=== PATIENT | female | born 1995 | race Caucasian/White ===

== ENCOUNTER 2017-04-16 12:11 | Emergency (ER) | payer OTHER ==
[2017-04-16 12:41] LABS: #Basophils 0.1 thou/uL (0.0-0.2); #Eosinphils 0.2 thou/uL (0.0-0.7); #Monocytes 0.7 thou/uL (0.11-0.59); #Neutrophils 7.1 thou/uL (1.40-6.50); %Basophils 0.7 % (0.0-1.0); %Eosinophils 2.3 % (0.0-10.0); %Lymphocytes 19.7 % (21.0-51.0); %Monocytes 6.8 % (0.0-10.0); %Neutrophils 70.5 % (42.0-75.0); Mean Corpuscular HGB CONC 32.9 g/dL (32.0-36.0); Mean Corpuscular Hemoglobin 29.9 pg (27.0-31.0); Mean Platelet Volume 7.5 fL (7.4-10.4); Platelet Count 293 thou/uL (130-400); RBC Distribution Width 11.9 % (11.5-14.5); Red Blood Cell (RBC) Count 4.66 mill/uL (4.20-5.40); White Blood Cell (WBC) Count 10.1 thou/uL (4.8-10.8)
[2017-04-16 12:46] LABS: Bilirubin Negative (Negative); Blood, Urine Negative (Negative); Clarity TURBID (Clear); Glucose, Urine (Dipstick) Negative (Negative); Leukocyte Negative (Negative); Nitrite Negative (Negative); Protein, Urine (Dipstick) Trace mg/dL (Neg-Trace); Specific Gravity, Urine 1.024 (1.002-1.036)
[2017-04-16 12:47] LABS: Pregnancy Test - Urine (BHCG) Negative (Negative); Pregu Control Background? CLEAR/WHITE (CLR/WHITE); Pregu Control Bar Appear? YES (CONTROL BAR); Specific Gravity 1.024 (1.002-1.036)
[2017-04-16 13:00] LABS: ALT (SGPT) 60 U/L (8-55); AST (SGOT) 31 U/L (5-34); Albumin 4.1 g/dL (3.5-5.0); Alkaline Phosphatase 91 U/L (40-150); Anion Gap 12 mmol/L (10-20); BUN (Urea Nitrogen) 10 mg/dL (7.0-18.7); Bilirubin, Total 0.5 mg/dL (0.2-1.2); Calc. Creatinine Clearance 0 mL/min (70-130); Calcium 9.2 mg/dL (7.8-10.44); Carbon Dioxide 26 mmol/L (22-29); Chloride 107 mmol/L (98-107); Estimated GFR-MDRD Greater than 90; Globulin 3.3 g/dL (2.4-3.5); Glucose 141 mg/dL (70-105); Potassium 3.3 mmol/L (3.5-5.1); Protein, Total 7.4 g/dL (6.0-8.3); Sodium 142 mmol/L (136-145)
--- NOTE | 2017-04-16 17:52 | ULT ---
GALLBLADDER ULTRASOUND: 04/16/17 INDICATION: Right upper quadrant pain. FINDINGS: No focal hepatic lesion or acute gallbladder pathology evident. Common duct is normal measuring 2 mm in diameter. There is no ascites. IMPRESSION: No acute abnormality of the right upper quadrant evident sonographically. POS: C
== END 2017-04-16 17:43 | disposition home or self-care (01) ==
LOC: ERS 12:11
DX: R10.11 Right upper quadrant pain (principal); R10.13 Epigastric pain; R73.9 Hyperglycemia, unspecified; F41.9 Anxiety disorder, unspecified; F17.210 Nicotine dependence, cigarettes, uncomplicated; G35 Multiple sclerosis
CPT/HCPCS: 36415; 76705; 80053; 81003; 81025; 85025; 99406

== ENCOUNTER 2019-01-01 16:54 | Inpatient (IN) | payer OTHER ==
[2019-01-01] MEDS ORDERED: Famotidine 20 MG TAB ONE (17:54)
[2019-01-01] MEDS ORDERED: Sucralfate 1 GM/10 ML UDCUP ONE (17:54)
[2019-01-01] MEDS ORDERED: Ondansetron ODT 4 MG TAB ONE (17:57)
[2019-01-01 18:00] LABS: #Basophils 0.1 thou/uL (0.0-0.2); #Eosinphils 0.3 thou/uL (0.0-0.7); #Lymphocytes 3.2 thou/uL (1.20-3.40); #Monocytes 0.9 thou/uL (0.11-0.59); #Neutrophils 12.1 thou/uL (1.40-6.50); %Basophils 0.6 % (0.0-1.0); %Eosinophils 1.7 % (0.0-10.0); %Lymphocytes 19.1 % (21.0-51.0); %Monocytes 5.5 % (0.0-10.0); %Neutrophils 73.2 % (42.0-75.0); Hemoglobin 15.9 g/dL (12.0-16.0); Mean Corpuscular HGB CONC 34.5 g/dL (32.0-36.0); Mean Corpuscular Hemoglobin 30.6 pg (27.0-31.0); Mean Corpuscular Volume 88.5 fL (78.0-98.0); Mean Platelet Volume 7.7 fL (7.4-10.4); Platelet Count 365 thou/uL (130-400); RBC Distribution Width 12.1 % (11.5-14.5); Red Blood Cell (RBC) Count 5.19 mill/uL (4.20-5.40); White Blood Cell (WBC) Count 16.6 thou/uL (4.8-10.8)
[2019-01-01 18:22] LABS: ALT (SGPT) 70 U/L (8-55); AST (SGOT) 47 U/L (5-34); Albumin 4.7 g/dL (3.5-5.0); Alkaline Phosphatase 119 U/L (40-150); Anion Gap 14 mmol/L (10-20); BHCG - Serum Negative (NEGATIVE); BUN (Urea Nitrogen) 11 mg/dL (7.0-18.7); Bilirubin, Total 0.6 mg/dL (0.2-1.2); Calc. Creatinine Clearance 0 mL/min (70-130); Calcium 10.4 mg/dL (7.8-10.44); Carbon Dioxide 28 mmol/L (22-29); Chloride 98 mmol/L (98-107); Estimated GFR-MDRD Greater than 90; Globulin 3.3 g/dL (2.4-3.5); Glucose 104 mg/dL (70-105); Lipase 277 U/L (8-78); Potassium 3.3 mmol/L (3.5-5.1); Pregs Control Background? CLEAR/WHITE (CLR/WHITE); Pregs Control Bar Appear? YES (CONTROL BAR); Sodium 137 mmol/L (136-145)
[2019-01-01] MEDS ORDERED: Ketorolac Tromethamine 30 MG/ML VIAL ONE (18:55)
--- NOTE | 2019-01-01 19:23 | ULT ---
RIGHT UPPER QUADRANT ULTRASOUND: History: Epigastric pain for four days. Technique: Multiplanar grayscale and color doppler images were obtained in a right upper quadrant abd ominal ultrasound. FINDINGS: The liver demonstrates increased echogenicity without focal lesions or intrahepatic ductal dilatation . The gallbladder is normal without stones, sludge, gallbladder wall thickening or pericholecystic fl uid. The common bile duct is normal measuring 4 mm. The visualized portions of the pancreas are unremarkable. The right kidney is normal in echogenicity without hydronephrosis or calculus and measures 8.6 cm in length. IMPRESSION: Fatty liver. POS: [facility]
[2019-01-01] MEDS ORDERED: Ondansetron PF 4 MG/2 ML Vial IVP PRN (20:33)
[2019-01-01] MEDS ORDERED: Ondansetron ODT 4 MG TAB SL PRN (20:33)
[2019-01-01 20:42] VITALS: BMI 37.0
[2019-01-01] MEDS: Sodium Chloride 0.9% 1,000 ML IV SCH (21:00)
--- NOTE | 2019-01-01 21:53 | HP ---
PRIMARY CARE DOCTOR: Raymundo Andino MD CODE STATUS: Full code. TIME OF EVALUATION: 7:30 p.m. CHIEF COMPLAINT: Abdominal pain. HISTORY OF PRESENT ILLNESS: This is a 23-year-old female patient with past medical history of hypertension, MS, melena, hyperthermia, alcohol abuse, came to the hospital after having epigastric pain that radiated to her back. The pain has been present for the past 4 days, started insidiously and has been gradually getting worse. It worsens with deep breath and food, associated with nausea. No bloody bowel movements. The patient drinks heavily almost everyday. REVIEW OF SYSTEMS: All systems reviewed were negative except for the findings mentioned above. PAST MEDICAL HISTORY: Positive for the findings mentioned in the HPI. PAST SURGICAL HISTORY: The patient has spinal surgery, thoracic and lumbar surgery. PSYCHIATRIC HISTORY: Anxiety with no previous psych admissions. SOCIAL HISTORY: Drinks socially. No drug use. Smokes 1 to 2 cigarettes per day. Lives at home alone. KNOWN ALLERGIES: Inhaled anesthesia, lidocaine. REPORTED MEDICATIONS: 1. Lisinopril. 2. Hydrochlorothiazide. PHYSICAL EXAMINATION: VITAL SIGNS: On presentation, blood pressure 149/88 with heart rate 99, respiratory rate was 18, temperature 98.3. Pain was 9/10. Oxygen saturation was 97% on room air. GENERAL APPEARANCE: The patient is alert, oriented, in no acute distress. HEENT: Eyes, normal conjunctiva, moist oral mucosa. Anicteric. No JVD. RESPIRATORY: Bilateral air entry. No rales. No wheezing. Symmetric expansion. CARDIOVASCULAR: Normal rate, regular rhythm. No murmurs. No edema. ABDOMEN: Soft. Normal bowel sounds. MUSCULOSKELETAL: Baseline range of motion and strength. SKIN: Warm, intact. No pallor. No rash. No redness. Capillary refill seems to be intact. NEUROLOGIC: No evidence of any new focal weakness. Cranial nerves seems to be intact. RADIOLOGY: Abdominal ultrasound is negative with normal bowel and bladder. LABORATORY DATA: Reviewed. The patient has white count 16.6, MCV 88.5, platelet count 365. Chemistry: Sodium 137, potassium 3.3, chloride 98, carbon dioxide 28, anion gap 15, BUN 11, creatinine 0.54, GFR greater than 90, glucose 104, calcium 10.4, total bilirubin 0.6, AST 47, ALT 70, alkaline phosphatase 119. Serum total protein 8.0, albumin 4.7, globulin 3.3, albumin globulin ratio 1.4, lipase 277. Serum test was negative. ASSESSMENT AND PLAN: The patient will be placed in the hospital with the following medical problems. 1. Abdominal pain of unclear etiology. There is mild elevation in lipase and the patient has a risk of alcohol abuse. We will give hydration, we will treat the pain. We will monitor and treat accordingly. 2. Hypokalemia. Potassium 3.3 and mildly decreased. We will replace electrolytes as needed. 3. Leukocytosis. White count is 16.6. No evidence of infection at this point. We will monitor and decide on any further antibiotic treatment depending on the patient's clinical course. 4. History of alcohol abuse. The patient denies any history of delirium when stopping to drink. We will continue to monitor and watch for delirium tremens. 5. Deep venous thrombosis prophylaxis. Job ID: [id number]
[2019-01-01] MEDS: Ketorolac Tromethamine 30 MG/ML VIAL IVP PRN (23:28)
[2019-01-02] MEDS: Sodium Chloride 0.9% 1,000 ML IV SCH ×4 (04:10→23:29)
[2019-01-02] MEDS ORDERED: Morphine 2 MG/ML SYRINGE SLOW IVP SCH (04:15)
[2019-01-02] MEDS: Ketorolac Tromethamine 30 MG/ML VIAL IVP PRN ×4 (05:37→23:31)
[2019-01-02] MEDS: Pantoprazole 40 MG VIAL IVP SCH (05:39)
[2019-01-02 05:47] LABS: #Eosinphils 0.3 thou/uL (0.0-0.7); #Lymphocytes 2.9 thou/uL (1.20-3.40); #Monocytes 0.7 thou/uL (0.11-0.59); #Neutrophils 5.9 thou/uL (1.40-6.50); %Basophils 0.3 % (0.0-1.0); %Eosinophils 2.8 % (0.0-10.0); %Lymphocytes 29.2 % (21.0-51.0); %Neutrophils 60.6 % (42.0-75.0); Hemoglobin 12.6 g/dL (12.0-16.0); Mean Corpuscular HGB CONC 34.6 g/dL (32.0-36.0); Mean Corpuscular Volume 89.6 fL (78.0-98.0); Mean Platelet Volume 7.6 fL (7.4-10.4); Platelet Count 227 thou/uL (130-400); Red Blood Cell (RBC) Count 4.05 mill/uL (4.20-5.40); White Blood Cell (WBC) Count 9.8 thou/uL (4.8-10.8)
[2019-01-02] MEDS ORDERED: Sodium Chloride 0.9% (PF) 10 ML VIAL FS PRN (06:00)
[2019-01-02 06:29] LABS: Anion Gap 9 mmol/L (10-20); BUN (Urea Nitrogen) 8 mg/dL (7.0-18.7); Calc. Creatinine Clearance 151 mL/min (70-130); Calcium 7.7 mg/dL (7.8-10.44); Carbon Dioxide 25 mmol/L (22-29); Chloride 107 mmol/L (98-107); Estimated GFR-MDRD Greater than 90; Glucose 101 mg/dL (70-105); Potassium 3.5 mmol/L (3.5-5.1); Sodium 137 mmol/L (136-145)
[2019-01-02] MEDS: Enoxaparin Sodium 40 MG/0.4 ML SYRINGE SC SCH (11:05)
[2019-01-02] MEDS: Lisinopril/Hydrochlorothiazide 10 mg/12.5 mg Tablet PO SCH (11:18)
[2019-01-02 11:25] LABS: Cardiac Risk 3.9 (Less than 4.5)
[2019-01-02 11:27] LABS: ALT (SGPT) 41 U/L (8-55); AST (SGOT) 28 U/L (5-34); Albumin 3.3 g/dL (3.5-5.0); Alkaline Phosphatase 78 U/L (40-150); Bilirubin, Direct 0.2 mg/dL (0.1-0.3); Bilirubin, Total 0.5 mg/dL (0.2-1.2); Protein, Total 5.6 g/dL (6.0-8.3)
--- NOTE | 2019-01-02 15:57 | PDOC.HOSPP ---
- Subjective Subjective: Doing a little better. Feels like her pain has slightly improved. She has been able to go a little longer without meds. Says she does not drink daily, but does drink several days per week and does drink heavily. - Objective Vital Signs & Weight: Vital Signs (12 hours) Temp Pulse Resp BP BP Pulse Ox 01/02/19 11:18 88 150/93 H 01/02/19 08:22 97.8 F 97 16 119/71 93 L 01/02/19 08:12 97.8 F 97 16 119/71 93 L 01/02/19 08:00 97.8 F 97 16 119/71 93 L 01/02/19 04:00 97.8 F 98 18 146/83 H 97 Weight Admit Weight 121 lb 5 oz Weight 121 lb 5 oz I&O: 01/01/19 01/02/19 01/03/19 06:59 06:59 06:59 Intake Total 1740 Balance 1740 Result Diagrams: 01/02/19 05:26 01/02/19 05:26 Hospitalist ROS - Medication Medications: Active Medications Generic Name Dose Route Start Last Admin Trade Name Guanacoq PRN Reason Stop Dose Admin Enoxaparin Sodium 40 mg 01/02/19 09:00 01/02/19 11:05 Lovenox SC Not Given 0900 NAIN Lisinopril/HCTZ 1 tab 01/02/19 09:00 01/02/19 11:18 Prinizide 10-12.5 PO 1 tab DAILY NAIN Administration Sodium Chloride 1,000 mls @ 150 mls/hr 01/02/19 11:30 01/02/19 11:25 Normal Saline 0.9% IV 1,000 mls .Q6H40M NAIN Administration Pantoprazole Sodium 40 mg 01/02/19 06:00 01/02/19 05:39 Protonix IVP 01/06/19 06:30 40 mg Q24HR NAIN Administration Sodium Chloride 10 ml 01/01/19 21:00 01/02/19 11:26 Flush - Normal Saline IVF 10 ml Q12HR NAIN Administration - Exam General Appearance: NAD, awake alert General - other findings: Morbidl obese. Neck: supple, symmetric Heart: RRR, no murmur, no gallops, no rubs, normal peripheral pulses Respiratory: CTAB, no wheezes, no rales, no ronchi, normal chest expansion, no tachypnea, normal percussion Gastrointestinal: soft, non-distended, no palpable masses, tender to palpation ( Epigastrium) Skin: normal turgor, no lesions, no rashes Musculoskeletal: normal tone, normal strength, no muscle wasting Psychiatric: normal affect, normal behavior, A&O x 3 Hosp A/P (1) Abdominal pain Code(s): R10.9 - UNSPECIFIED ABDOMINAL PAIN Status: Acute (2) Pancreatitis Code(s): K85.90 - ACUTE PANCREATITIS WITHOUT NECROSIS OR INFECTION, UNSP Status: Acute (3) Morbid obesity Code(s): E66.01 - MORBID (SEVERE) OBESITY DUE TO EXCESS CALORIES Status: Acute (4) HTN (hypertension) Code(s): I10 - ESSENTIAL (PRIMARY) HYPERTENSION Status: Acute (5) Alcohol abuse Code(s): F10.10 - ALCOHOL ABUSE, UNCOMPLICATED Status: Acute - Plan Continue bowel rest with sips of water. GI consult pending. Left's improved. May have passed a gall stone, but most likely this is related to the alcohol. Long discussion regarding the need to stop the alcohol abuse. Pain meds, IVF. FLP.
[2019-01-02] MEDS: Multivitamins, Adult 10 ML, Folic Acid 1 MG, Thiamine HCl 100 MG in Dextrose 5 %-0.45 %... IV SCH (18:08)
--- NOTE | 2019-01-02 21:42 | CON ---
DATE OF CONSULTATION: 01/02/2019 REASON FOR CONSULT: Epigastric pain. HISTORY OF PRESENT ILLNESS: Ms. Mccormick is a 23-year-old female, who came to the emergency room yesterday after five days of epigastric pain which became unrelenting. She states that the pain been bandlike in the upper abdomen and radiated somewhat down to the lower abdomen into her back. She had some vomiting without hematemesis. She had no melena. She denies any fever or chills. She states she had some pain like this in the past with ovarian cyst, but she does not recall if that was upper or lower. She was taking quite a bit of ibuprofen in the past 2 months for vague lower back pain up to 3 every 6 hours. Also, she has been drinking heavily since the first year, drinking a bottle of [place] about 3 times a week and four 16-ounce fortified alcohol drinks 14% alcohol every day. She denies any history of withdrawal. She denies history of Tylenol use or drug abuse. She is doing a little bit better here today on IV fluids. She has not anything to eat since admission. PAST MEDICAL HISTORY: Notable for multiple sclerosis. She also has history of hypertension. She has a history of malignant hyperthermia. PAST SURGICAL HISTORY: Slaughter mirna placement for scoliosis. PSYCHIATRIC HISTORY: Anxiety. No prior psych admissions. SOCIAL HISTORY: She drinks alcohol heavily. She does not use drugs. She smokes 1-2 cigarettes per day. ALLERGIES: SHE HAD MALIGNANT HYPERTHERMIA WITH ANESTHESIA. SHE IS ALLERGIC TO LIDOCAINE. MEDICATIONS: At home: 1. Hydrochlorothiazide. 2. Lisinopril. Medications here: 1. Lovenox. 2. Toradol. 3. Zofran. 4. Protonix 40 IV q.24 hours. 5. Normal saline at 150 an hour. PHYSICAL EXAMINATION: GENERAL: She is pleasant, resting in bed. She has no distress. VITAL SIGNS: She has been afebrile since admission. Temperature is 97.8, pulse 88, blood pressure 150/93. HEENT: She is nonicteric. Oropharynx without lesions. Mucous membranes are moist. NECK: Supple. LUNGS: Clear. HEART: Regular without clicks, rubs, or murmurs. ABDOMEN: Tender in the epigastrium. There is no rebound. There is no guarding. There is no shifting dullness. There is no fluid wave. There is no periumbilical or flank bruising. SKIN: Without rashes or lesions. LABORATORY DATA: White count was 16.6 yesterday at 1750, it is 9.8 today; hemoglobin was 15.9, today 12.6; platelet count 227. Sodium 137, potassium 3.5, bicarb 25, chloride 109, BUN 8, creatinine 0.5, AST 47, ALT 70, lipase 277 on admission, 199 today. Triglycerides 94. test negative. Ultrasound showed fatty liver. No gallstones. ASSESSMENT: 1. Mild pancreatitis from alcohol versus peptic disease. 2. Alcohol abuse. 3. Heavy nonsteroidal anti-inflammatory drug use. RECOMMENDATIONS: 1. EGD tomorrow. 2. Continue IV fluids. 3. Banana bag. 4. DT precautions. 5. Recommended alcohol cessation. She is drinking too much, it is more than just socially. Job ID: [id number]
[2019-01-03 05:05] LABS: Anion Gap 9 mmol/L (10-20); BUN (Urea Nitrogen) Less than 4 mg/dL (7.0-18.7); Calc. Creatinine Clearance 175 mL/min (70-130); Calcium 7.8 mg/dL (7.8-10.44); Carbon Dioxide 27 mmol/L (22-29); Chloride 105 mmol/L (98-107); Estimated GFR-MDRD Greater than 90; Glucose 107 mg/dL (70-105); Lipase 114 U/L (8-78); Magnesium 1.6 mg/dL (1.6-2.6); Phosphorus 2.6 mg/dL (2.3-4.7); Sodium 138 mmol/L (136-145)
[2019-01-03 05:19] LABS: Potassium 2.9 mmol/L (3.5-5.1)
[2019-01-03] MEDS: Pantoprazole 40 MG VIAL IVP SCH (05:37)
[2019-01-03] MEDS: Ketorolac Tromethamine 30 MG/ML VIAL IVP PRN ×2 (08:09→16:30)
[2019-01-03] MEDS: Enoxaparin Sodium 40 MG/0.4 ML SYRINGE SC SCH (08:10)
[2019-01-03] MEDS: Lisinopril/Hydrochlorothiazide 10 mg/12.5 mg Tablet PO SCH (08:10)
[2019-01-03] MEDS ORDERED: Potassium Chloride 40 MEQ in Premix Bag 1 BAG IVPB SCH (08:45)
[2019-01-03] MEDS: Potassium Chloride 20 MEQ in Premix Bag 1 BAG IVPB SCH ×2 (09:29→16:54)
[2019-01-03] MEDS: Sodium Chloride 0.9% 1,000 ML IV SCH ×3 (09:32→20:52)
--- NOTE | 2019-01-03 11:28 | PDOC.HOSPP ---
- Subjective Subjective: Abd pain is some better. Did have some meds this morning. A little anxious about the scope. - Objective Vital Signs & Weight: Vital Signs (12 hours) Temp Pulse Resp BP BP Pulse Ox 01/03/19 08:10 92 136/60 01/03/19 08:00 95 01/03/19 07:49 98.2 F 92 18 136/60 95 Weight Admit Weight 121 lb 5 oz Weight 121 lb 5 oz I&O: 01/02/19 01/03/19 01/04/19 06:59 06:59 06:59 Intake Total 1740 3941 Balance 1740 3941 Result Diagrams: 01/02/19 05:26 01/03/19 04:25 Hospitalist ROS - Medication Medications: Active Medications Generic Name Dose Route Start Last Admin Trade Name Freq PRN Reason Stop Dose Admin Enoxaparin Sodium 40 mg 01/02/19 09:00 01/03/19 08:10 Lovenox SC Not Given 0900 NAIN Lisinopril/HCTZ 1 tab 01/02/19 09:00 01/03/19 08:10 Prinizide 10-12.5 PO 1 tab DAILY NAIN Administration Sodium Chloride 1,000 mls @ 150 mls/hr 01/02/19 11:30 01/03/19 09:32 Normal Saline 0.9% IV Not Given .Q6H40M NAIN Multivitamins 10 ml/ Folic 1,011.2 mls @ 100 mls/hr 01/02/19 16:00 01/02/19 18:08 Acid 1 mg/ Thiamine HCl 100 mg IV 1,011.2 mls / Dextrose/Sodium Chloride Q24HR NAIN Administration Potassium Chloride 20 meq/ 100 mls @ 50 mls/hr 01/03/19 10:00 01/03/19 09:29 Device IVPB 01/03/19 13:59 100 mls Q2H NAIN Administration Ketorolac Tromethamine 30 mg 01/02/19 17:57 01/03/19 08:09 Toradol IVP 01/07/19 17:58 30 mg Q6H PRN Administration Pain Ondansetron HCl 4 mg 01/01/19 20:33 01/02/19 23:29 Zofran Odt SL 01/07/19 06:30 4 mg Q6H PRN Administration Nausea/Vomiting Pantoprazole Sodium 40 mg 01/02/19 06:00 01/03/19 05:37 Protonix IVP 01/06/19 06:30 40 mg Q24HR NAIN Administration Sodium Chloride 10 ml 01/01/19 21:00 01/03/19 08:10 Flush - Normal Saline IVF Not Given Q12HR NAIN - Exam General Appearance: NAD, awake alert Heart: RRR, no murmur, no gallops, no rubs, normal peripheral pulses Respiratory: CTAB, no wheezes, no rales, no ronchi, normal chest expansion, no tachypnea, normal percussion Gastrointestinal: soft, non-distended, normal bowel sounds, tender to palpation (Mild, epigastric) Extremities: no cyanosis, no clubbing, no edema Musculoskeletal: normal tone Psychiatric: normal affect, normal behavior, A&O x 3 Hosp A/P (1) Abdominal pain Code(s): R10.9 - UNSPECIFIED ABDOMINAL PAIN Status: Acute (2) Pancreatitis Code(s): K85.90 - ACUTE PANCREATITIS WITHOUT NECROSIS OR INFECTION, UNSP Status: Acute (3) Morbid obesity Code(s): E66.01 - MORBID (SEVERE) OBESITY DUE TO EXCESS CALORIES Status: Acute (4) HTN (hypertension) Code(s): I10 - ESSENTIAL (PRIMARY) HYPERTENSION Status: Acute (5) Alcohol abuse Code(s): F10.10 - ALCOHOL ABUSE, UNCOMPLICATED Status: Acute - Plan Continue bowel rest with sips of water. GI consult. EGD today. Left's improved. Long discussion regarding the need to stop the alcohol abuse. Pain meds, IVF. FLP with no severe triglyceridemia. If EGD negative, may be able to give some clears and advance.
[2019-01-03] MEDS ORDERED: Ondansetron PF 4 MG/2 ML Vial ONE (12:49)
[2019-01-03] MEDS ORDERED: Promethazine HCl 25 MG/ML VIAL SLOW IVP PRN (13:34)
[2019-01-03] MEDS ORDERED: Ondansetron HCl/PF 4 MG/2 ML Vial IVP PRN (13:34)
[2019-01-03] MEDS ORDERED: Promethazine HCl 25 MG/ML VIAL IM PRN (13:34)
[2019-01-03] MEDS ORDERED: Potassium Chloride 20 MEQ TAB PO SCH (16:15)
[2019-01-03] MEDS: Multivitamins, Adult 10 ML, Folic Acid 1 MG, Thiamine HCl 100 MG in Dextrose 5 %-0.45 %... IV SCH (17:01)
--- NOTE | 2019-01-03 18:17 | OP ---
DATE OF PROCEDURE: 01/03/2019 PROCEDURE PERFORMED: Esophagogastroduodenoscopy. PREMEDICATION: Given by Anesthesiology Department. PREPROCEDURE DIAGNOSES: 1. Severe epigastric pain. 2. Heavy nonsteroidal anti-inflammatory drug usage. POSTPROCEDURE DIAGNOSIS: Normal upper endoscopy. DESCRIPTION OF PROCEDURE: Written consents were obtained prior to procedure. After adequate sedation, forward-viewing endoscope was advanced down the stomach under direct vision to the second portion of duodenum. The duodenum and the bulb appeared normal. The pylorus was patent. The gastric antrum, body, fundus, and cardia all appeared normal. Retroflexion did not show any abnormality. The GE junction with regular Z-line was located at 28 cm from the incisors. The lower, mid, and upper esophagus appeared normal. The stomach was then decompressed, the instrument was then fully removed. The patient tolerated the procedure well. ASSESSMENT: 1. Normal upper endoscopy. 2. No evidence of nonsteroidal anti-inflammatory drug gastropathy. 3. Pain is most likely from mild acute pancreatitis on admission. RECOMMENDATION: 1. We will start diet and advance as tolerated. 2. Anticipate discharge tomorrow, if she can tolerate regular diet. Job ID: [id number]
[2019-01-03] MEDS: Famotidine 20 MG TAB PO SCH (20:34)
[2019-01-03] MEDS: Morphine 2 MG/ML SYRINGE SLOW IVP PRN (20:37)
[2019-01-04] MEDS: Ketorolac Tromethamine 30 MG/ML VIAL IVP PRN ×3 (02:46→19:57)
[2019-01-04] MEDS: Sodium Chloride 0.9% 1,000 ML IV SCH ×4 (03:29→19:06)
[2019-01-04] MEDS: Lisinopril/Hydrochlorothiazide 10 mg/12.5 mg Tablet PO SCH (09:40)
[2019-01-04] MEDS: Famotidine 20 MG TAB PO SCH ×2 (09:41→19:56)
[2019-01-04] MEDS: Enoxaparin Sodium 40 MG/0.4 ML SYRINGE SC SCH (09:42)
[2019-01-04] MEDS: Morphine 2 MG/ML SYRINGE SLOW IVP PRN (10:40)
[2019-01-04 13:33] LABS: Bacteria/HPF None Seen HPF (None Seen); Bilirubin Negative (Negative); Blood, Urine Negative (Negative); Clarity Clear (Clear); Glucose, Urine (Dipstick) Normal (Negative); Leukocyte Negative Leu/uL (Negative); Nitrite Negative (Negative); Protein, Urine (Dipstick) Negative (Neg-Trace); RBC/HPF 0-3 HPF (0-3); Urobilinogen Normal mg/dL (Less than 2); WBC/HPF 0-3 HPF (0-3)
[2019-01-04 13:41] LABS: Urine Culture Reflex No No
[2019-01-04] MEDS ORDERED: traMADol HCl 50 MG TAB PO PRN (17:32)
[2019-01-04] MEDS: Multivitamins, Adult 10 ML, Folic Acid 1 MG, Thiamine HCl 100 MG in Dextrose 5 %-0.45 %... IV SCH (18:25)
[2019-01-04] MEDS ORDERED: hydrALAZINE 20 MG/ML VIAL SLOW IVP PRN (20:11)
[2019-01-04] MEDS ORDERED: Morphine 2 MG/ML SYRINGE SLOW IVP SCH (20:30)
--- NOTE | 2019-01-04 21:18 | PDOC.HOSPP ---
- Subjective Subjective: Patient was seen twice today. This morning her abdomen was feeling better, but she was having some pain in the right posterior rib/flank area. Radiated around toward the rib area. UA was ordered and was negative. She ate breakfast and lunch without any problems. She was prepared to go home. Discharge orders were placed. She then reported abdominal pain again and said she was not ready to go home. - Objective Vital Signs & Weight: Vital Signs (12 hours) Temp Pulse Resp BP BP Pulse Ox 01/04/19 20:00 98.2 F 98 20 164/111 H 96 01/04/19 09:40 92 134/86 Weight Admit Weight 121 lb 5 oz Weight 121 lb 5 oz I&O: 01/03/19 01/04/19 01/05/19 06:59 06:59 06:59 Intake Total 3941 3378 Balance 3941 3378 Result Diagrams: 01/02/19 05:26 01/03/19 04:25 Hospitalist ROS - Medication Medications: Active Medications Generic Name Dose Route Start Last Admin Trade Name Leonard PRN Reason Stop Dose Admin Enoxaparin Sodium 40 mg 01/02/19 09:00 01/04/19 09:42 Lovenox SC Not Given 0900 NAIN Famotidine 20 mg 01/03/19 21:00 01/04/19 19:56 Pepcid PO 20 mg BID NAIN Administration Lisinopril/HCTZ 1 tab 01/02/19 09:00 01/04/19 09:40 Prinizide 10-12.5 PO 1 tab DAILY NAIN Administration Sodium Chloride 1,000 mls @ 150 mls/hr 01/02/19 11:30 01/04/19 19:06 Normal Saline 0.9% IV Not Given .Q6H40M NAIN Multivitamins 10 ml/ Folic 1,011.2 mls @ 100 mls/hr 01/02/19 16:00 01/04/19 18:25 Acid 1 mg/ Thiamine HCl 100 mg IV 1,011.2 mls / Dextrose/Sodium Chloride Q24HR NAIN Administration Ketorolac Tromethamine 15 mg 01/04/19 17:33 01/04/19 19:57 Toradol IVP 01/07/19 17:58 15 mg Q6H PRN Administration Pain Ondansetron HCl 4 mg 01/01/19 20:33 01/02/19 23:29 Zowanda Odt SL 01/07/19 06:30 4 mg Q6H PRN Administration Nausea/Vomiting Sodium Chloride 10 ml 01/01/19 21:00 01/04/19 20:05 Flush - Normal Saline IVF 10 ml Q12HR NAIN Administration - Exam General Appearance: NAD, awake alert Heart: RRR, no murmur, no gallops, no rubs, normal peripheral pulses Respiratory: CTAB, no wheezes, no rales, no ronchi, normal chest expansion, no tachypnea, normal percussion Gastrointestinal: soft, non-tender, non-distended, normal bowel sounds, no palpable masses, no hepatomegaly, no splenomegaly, no bruit Skin: normal turgor, no lesions, no rashes Musculoskeletal: normal tone, normal strength Musculoskeletal - other findings: Old surgical scars midline spine. Modest ttp to right post ribs. Hosp A/P (1) Abdominal pain Code(s): R10.9 - UNSPECIFIED ABDOMINAL PAIN Status: Acute (2) Pancreatitis Code(s): K85.90 - ACUTE PANCREATITIS WITHOUT NECROSIS OR INFECTION, UNSP Status: Acute (3) Morbid obesity Code(s): E66.01 - MORBID (SEVERE) OBESITY DUE TO EXCESS CALORIES Status: Acute (4) HTN (hypertension) Code(s): I10 - ESSENTIAL (PRIMARY) HYPERTENSION Status: Acute (5) Alcohol abuse Code(s): F10.10 - ALCOHOL ABUSE, UNCOMPLICATED Status: Acute - Plan EGD was negative. She was advanced to regular diet and did not appear to have any problems. After discharge orders were placed, she reported pain again and said she was not ready to go home. NPO. DC Morphine. Toradol and Tramadol for pain. Ambulate. UA was negative. Suspect her back/flank pain is musculoskeletal. Relates her hx of scoliosis and the hospital bed. She agrees. This evening, she reported 9/10 back pain and had a one time dose of morphine given. Will resume the IV MSO4 and reassess in am.
[2019-01-04] MEDS ORDERED: Morphine 2 MG/ML SYRINGE SLOW IVP PRN (21:26)
[2019-01-05] MEDS: Ketorolac Tromethamine 30 MG/ML VIAL IVP PRN (02:28)
[2019-01-05] MEDS: Sodium Chloride 0.9% 1,000 ML IV SCH (02:32)
[2019-01-05 06:38] LABS: #Basophils 0.1 thou/uL (0.0-0.2); #Eosinphils 0.3 thou/uL (0.0-0.7); #Lymphocytes 2.6 thou/uL (1.20-3.40); #Monocytes 0.6 thou/uL (0.11-0.59); #Neutrophils 4.2 thou/uL (1.40-6.50); %Eosinophils 4.3 % (0.0-10.0); %Lymphocytes 33.5 % (21.0-51.0); %Monocytes 7.5 % (0.0-10.0); %Neutrophils 53.8 % (42.0-75.0); Hemoglobin 12.6 g/dL (12.0-16.0); Mean Corpuscular HGB CONC 34.2 g/dL (32.0-36.0); Mean Corpuscular Hemoglobin 30.8 pg (27.0-31.0); Mean Corpuscular Volume 89.9 fL (78.0-98.0); Mean Platelet Volume 7.9 fL (7.4-10.4); Platelet Count 228 thou/uL (130-400); Red Blood Cell (RBC) Count 4.11 mill/uL (4.20-5.40); White Blood Cell (WBC) Count 7.7 thou/uL (4.8-10.8)
[2019-01-05 06:57] LABS: Anion Gap 10 mmol/L (10-20); BUN (Urea Nitrogen) 4 mg/dL (7.0-18.7); Calc. Creatinine Clearance 160 mL/min (70-130); Calcium 8.6 mg/dL (7.8-10.44); Carbon Dioxide 27 mmol/L (22-29); Chloride 104 mmol/L (98-107); Estimated GFR-MDRD Greater than 90; Glucose 97 mg/dL (70-105); Sodium 137 mmol/L (136-145)
[2019-01-05 07:34] VITALS: BP 132/81; TEMP 98
--- NOTE | 2019-01-05 08:05 | RAD ---
FRONTAL AND LATERAL IMAGING OF THORACIC SPINE: Date: 01/05/2019 COMPARISON: None. HISTORY: Pain. FINDINGS: Extensive Slaughter rods are present which span the upper thoracic spine through the lower lumbar sp ine. There is associated incompletely assessed scoliosis of the thoracolumbar spine, which is most prominent at the lower thoracic spine with apex to the left. Lateral imaging, limited in assessment s econdary to scoliosis, demonstrates no evidence for anterolisthesis or retrolisthesis. There is no evidence for hardware failure. IMPRESSION: Thoracolumbar scoliosis treated with Slaughter rods throughout the thoracic and lumbar spine. No blake dence for hardware failure. Transcribed Date/Time: 01/05/2019 10:57 AM
[2019-01-05] MEDS: Famotidine 20 MG TAB PO SCH (09:21)
[2019-01-05] MEDS: Lisinopril/Hydrochlorothiazide 10 mg/12.5 mg Tablet PO SCH (09:21)
[2019-01-05] MEDS: Enoxaparin Sodium 40 MG/0.4 ML SYRINGE SC SCH (09:22)
--- NOTE | 2019-01-05 09:54 | RAD ---
RIGHT RIBS WITH PA CHEST: Date: 01/05/19 HISTORY: Pain. COMPARISON: None. FINDINGS: No displaced right-sided rib fracture. No pneumothorax. No effusion. Slaughter rods of thoracic spin e. IMPRESSION: No acute osseous abnormality of the right ribs. POS: [facility]
--- NOTE | 2019-01-06 04:55 | DIS ---
DATE OF ADMISSION: 01/02/2019 DATE OF DISCHARGE: 01/05/2019 DISCHARGE DIAGNOSES: 1. Pancreatitis. 2. Alcohol abuse. 3. Back pain. 4. History of scoliosis with Slaughter rods. 5. Obesity. 6. Hypertension. HISTORY OF PRESENT ILLNESS: This patient is a 23-year-old female, who has a history of some binge drinking, who presented to the emergency department with abdominal pain. She had abdominal ultrasound revealing only fatty liver. She did have elevations of her lipase. HOSPITAL COURSE: The patient was admitted to the hospital, started on IV fluids and pain management and kept n.p.o. She was seen in consultation by GI, who started a banana bag and recommended DT precautions. The patient subsequently had upper endoscopy to rule out other etiology of the abdominal pain, this was unremarkable, with that the patient's pain did improve somewhat and she was close to discharge ; however, she then developed some pain in her right back and flank area. She was able to eat and we actually made discharge planning. However, the patient then reported some recurrence of her abdominal pain, so she was kept an additional night. That morning, the patient indicated she wanted to go home. She felt her abdominal pain has significantly improved. She was still having some pain related to her back, but states that she had back pain before, but this was worse, but nonetheless she was wanting to go home. PHYSICAL EXAMINATION: VITAL SIGNS: On the day of discharge, temperature is 98, pulse 86, BP 132/81, respirations 18, O2 saturation 97% on room air. GENERAL APPEARANCE: Age-appropriate female, in no distress. HEART: Regular rate and rhythm. LUNGS: Clear bilaterally. ABDOMEN: Soft, nontender, and nondistended with positive bowel sounds. BACK: Only revealed old surgical scars with no new findings. No lesions. DISPOSITION: The patient is discharged to home in good condition. ACTIVITY: As tolerated. She has no activity restrictions. DISCHARGE MEDICATIONS: She will be on tramadol 50 mg q.i.d. p.r.n. and continue with lisinopril/hydrochlorothiazide 10/12.5 one p.o. daily. FOLLOWUP: She will follow up with Dr. Valle and her PCP of choice. She can return to the hospital should she have any problems prior to that time. Time spent in discharge activity was 31 min. Job ID: [id number] [facility], [place]
== END 2019-01-05 10:31 | disposition home or self-care (01) | DRG 440 ==
LOC: ERS 16:54 → INTOOBSV 20:26 → T4-A 20:26 → OBSVTOIN 01-02 13:11
PROVIDERS: ADMIT Internal Medicine; ATTEND Internal Medicine
PROC: 0DJ08ZZ Inspection of Upper Intestinal Tract, Via Natural or Artificial Opening Endoscopic (ICD-10-PCS; principal; 2019-01-03)
DX: K85.90 Acute pancreatitis without necrosis or infection, unspecified (principal); I10 Essential (primary) hypertension; F10.10 Alcohol abuse, uncomplicated; F41.9 Anxiety disorder, unspecified; F17.210 Nicotine dependence, cigarettes, uncomplicated; E87.6 Hypokalemia; D72.829 Elevated white blood cell count, unspecified; F19.10 Other psychoactive substance abuse, uncomplicated; E66.01 Morbid (severe) obesity due to excess calories; Z98.890 Other specified postprocedural states; Z79.899 Other long term (current) drug therapy; Z91.041 Radiographic dye allergy status; Z68.37 Body mass index [BMI] 37.0-37.9, adult; G35 Multiple sclerosis
CPT/HCPCS: 36415; 72072; 76705; 80048; 80053; 80061; 80076; 81001; 83690; 83735; 84100; 84703; 85025; 96361; 96374; C9113; J1650; J1885; J2270; J2405; J3411; J3480; J7042; Q0162

== ENCOUNTER 2019-05-08 22:21 | Emergency (ER) | payer OTHER ==
[2019-05-08 22:54] LABS: #Basophils 0.1 thou/uL (0.0-0.2); #Eosinphils 0.3 thou/uL (0.0-0.7); #Lymphocytes 3.5 thou/uL (1.20-3.40); #Monocytes 0.7 thou/uL (0.11-0.59); #Neutrophils 7.7 thou/uL (1.40-6.50); %Basophils 0.7 % (0.0-1.0); %Eosinophils 2.5 % (0.0-10.0); %Lymphocytes 28.5 % (21.0-51.0); %Monocytes 5.6 % (0.0-10.0); %Neutrophils 62.7 % (42.0-75.0); Hemoglobin 14.6 g/dL (12.0-16.0); Mean Corpuscular HGB CONC 33.5 g/dL (32.0-36.0); Mean Corpuscular Hemoglobin 30.4 pg (27.0-31.0); Mean Corpuscular Volume 90.6 fL (78.0-98.0); Mean Platelet Volume 7.8 fL (7.4-10.4); Platelet Count 309 thou/uL (130-400); RBC Distribution Width 11.6 % (11.5-14.5); Red Blood Cell (RBC) Count 4.79 mill/uL (4.20-5.40); White Blood Cell (WBC) Count 12.3 thou/uL (4.8-10.8)
[2019-05-08 23:16] LABS: ALT (SGPT) 58 U/L (8-55); AST (SGOT) 42 U/L (5-34); Albumin 4.6 g/dL (3.5-5.0); Alkaline Phosphatase 86 U/L (40-110); Anion Gap 10 mmol/L (10-20); BUN (Urea Nitrogen) 15 mg/dL (7.0-18.7); Bilirubin, Total 0.4 mg/dL (0.2-1.2); Calc. Creatinine Clearance 0 mL/min (70-130); Calcium 9.2 mg/dL (7.8-10.44); Carbon Dioxide 28 mmol/L (22-29); Chloride 103 mmol/L (98-107); Estimated GFR-MDRD Greater than 90; Globulin 3.2 g/dL (2.4-3.5); Glucose 133 mg/dL (70-105); Potassium 4.1 mmol/L (3.5-5.1); Protein, Total 7.8 g/dL (6.0-8.3); Sodium 137 mmol/L (136-145)
[2019-05-09] MEDS ORDERED: Morphine 4 MG/ML VIAL ONE (00:13)
[2019-05-09] MEDS ORDERED: Famotidine 20 MG TAB ONE (00:13)
[2019-05-09] MEDS ORDERED: Ondansetron PF 4 MG/2 ML Vial ONE (01:04)
[2019-05-09 01:12] LABS: Bilirubin Negative (Negative); Blood, Urine Negative (Negative); Clarity Turbid (Clear); Glucose, Urine (Dipstick) Normal (Negative); Leukocyte Negative Leu/uL (Negative); Nitrite Negative (Negative); Protein, Urine (Dipstick) 10 mg/dL (Neg-Trace); Urobilinogen Normal mg/dL (Less than 2)
[2019-05-09 01:14] LABS: Pregnancy Test - Urine (BHCG) Negative (Negative); Pregu Control Background? CLEAR/WHITE (CLR/WHITE); Pregu Control Bar Appear? YES (CONTROL BAR)
--- NOTE | 2019-05-09 08:45 | ULT ---
PRELIMINARY REPORT/[facility]/EMERGENCY AFTER HOURS PROCEDURE: EXAM: US Abdomen Limited, Right Upper Quadrant. CLINICAL HISTORY: Epigastric pain, nausea TECHNIQUE: Real-time ultrasound of the right upper quadrant with image documentation. COMPARISON: None provided. FINDINGS: LIVER: Measures 14.7 cm and demonstrates fatty infiltration. GALLBLADDER: No gallstone. No wall thickening. No pericholecystic fluid. COMMON BILE DUCT: No dilation. Measures 2.6 mm PANCREAS: Obscured by overlying bowel gas. RIGHT KIDNEY: Unremarkable. No hydronephrosis. IMPRESSION: Fatty infiltration of the liver with no acute process ELECTRONICALLY SIGNED BY: Servando Richardson MD May 09, 2019 12:55:26 AM FINANCIAL ASSOCIATE This report is intended for review by the ordering physician only, in accordance of law. If you recei ve this report in error, please call [facility] at [phone]. FINAL REPORT EMERGENCY AFTER HOURS GALLBLADDER ULTRASOUND: FINDINGS/IMPRESSION: I agree with the findings and impression given in the preliminary report per [facility] samm ahmadi. Fatty liver.
== END 2019-05-09 02:02 | disposition home or self-care (01) ==
LOC: ERS 22:21
DX: R10.13 Epigastric pain (principal); R10.811 Right upper quadrant abdominal tenderness; G35 Multiple sclerosis; I10 Essential (primary) hypertension; F41.9 Anxiety disorder, unspecified; F17.210 Nicotine dependence, cigarettes, uncomplicated
CPT/HCPCS: 76705; 80053; 81003; 81025; 83690; 85025; 96374; 96375; J2270; J2405

== ENCOUNTER 2022-02-05 15:30 | Emergency (ER) | payer OTHER ==
[2022-02-05 16:22] LABS: #Eosinphils 0.2 thou/uL (0.0-0.7); #Lymphocytes 2.8 thou/uL (1.20-3.40); #Monocytes 0.6 thou/uL (0.11-0.59); #Neutrophils 7.1 thou/uL (1.40-6.50); %Basophils 0.4 % (0.0-1.0); %Eosinophils 1.6 % (0.0-10.0); %Lymphocytes 26.2 % (21.0-51.0); %Monocytes 5.2 % (0.0-10.0); %Neutrophils 66.6 % (42.0-75.0); Hemoglobin 14.1 g/dL (12.0-16.0); Mean Corpuscular HGB CONC 33.1 g/dL (32.0-36.0); Mean Corpuscular Hemoglobin 29.9 pg (27.0-31.0); Mean Corpuscular Volume 90.3 fl (78.0-98.0); Mean Platelet Volume 7.2 fL (7.4-10.4); Platelet Count 331 thou/uL (130-400); RBC Distribution Width 11.9 % (11.5-14.5); Red Blood Cell (RBC) Count 4.73 mill/uL (4.20-5.40); White Blood Cell (WBC) Count 10.7 thou/uL (4.8-10.8)
[2022-02-05 16:38] LABS: ALT (SGPT) 41 U/L (8-55); AST (SGOT) 27 U/L (5-34); Alkaline Phosphatase 80 U/L (40-110); Anion Gap 10 mmol/L (10-20); BUN (Urea Nitrogen) 7 mg/dL (7.0-18.7); Bilirubin, Total 0.5 mg/dL (0.2-1.2); Calc. Creatinine Clearance 0 mL/min (70-130); Calcium 8.9 mg/dL (7.8-10.44); Carbon Dioxide 26 mmol/L (22-29); Chloride 103 mmol/L (98-107); Estimated GFR 134; Globulin 3.2 g/dL (2.4-3.5); Glucose 95 mg/dL (70-105); Lipase 26 U/L (8-78); Potassium 3.8 mmol/L (3.5-5.1); Protein, Total 7.2 g/dL (6.0-8.3); Sodium 135 mmol/L (136-145)
[2022-02-05] MEDS ORDERED: Ketorolac Tromethamine 30 MG/ML VIAL ONE (17:45)
[2022-02-05] MEDS ORDERED: Ondansetron PF 4 MG/2 ML Vial ONE (17:45)
[2022-02-05 19:36] LABS: Bacteria/HPF None Seen HPF (None Seen); Bilirubin Negative (Negative); Blood, Urine Trace (Negative); Clarity Clear (Clear); Glucose, Urine (Dipstick) Normal (Negative); Ketone, Urine 60 mg/dL (Negative); Leukocyte Negative Leu/uL (Negative); Nitrite Negative (Negative); Protein, Urine (Dipstick) Negative (Neg-Trace); RBC/HPF 0-3 HPF (0-3); Specific Gravity, Urine 1.018 (1.002-1.036); Squamous Epithelial 0-3 HPF (0-3); Urobilinogen Normal mg/dL (Less than 2); WBC/HPF 0-3 HPF (0-3); pH, Urine 6.5 (5.0-9.0)
== END 2022-02-05 20:40 | disposition home or self-care (01) ==
LOC: ERS 15:30
DX: R10.13 Epigastric pain (principal); I10 Essential (primary) hypertension; G35 Multiple sclerosis; F17.290 Nicotine dependence, other tobacco product, uncomplicated; Z79.899 Other long term (current) drug therapy
CPT/HCPCS: 76705; 80053; 81003; 81015; 83690; 85025; 94760; 96374; 96375; J1885; J2405

== ENCOUNTER 2022-05-30 20:23 | Inpatient (IN) | payer OTHER ==
[~2022-05-30 20:23] MED LIST: Iopamidol-370 76% 500 ML 1 ML ONE
[2022-05-30] MEDS ORDERED: Ondansetron PF 4 MG/2 ML Vial ONE (21:09)
[2022-05-30] MEDS ORDERED: Ketorolac Tromethamine 30 MG/ML VIAL ONE (21:09)
[2022-05-30] MEDS ORDERED: Dicyclomine 20 MG/2 ML VIAL ONE (21:09)
[2022-05-30 21:27] LABS: #Basophils 0.1 thou/uL (0.0-0.2); #Eosinphils 0.1 thou/uL (0.0-0.7); #Lymphocytes 1.8 thou/uL (1.20-3.40); #Monocytes 0.7 thou/uL (0.11-0.59); #Neutrophils 14.2 thou/uL (1.40-6.50); %Basophils 0.4 % (0.0-1.0); %Eosinophils 0.4 % (0.0-10.0); %Lymphocytes 10.5 % (21.0-51.0); %Monocytes 4.4 % (0.0-10.0); %Neutrophils 84.3 % (42.0-75.0); Hemoglobin 13.9 g/dL (12.0-16.0); Mean Corpuscular HGB CONC 33.9 g/dL (32.0-36.0); Mean Corpuscular Hemoglobin 30.9 pg (27.0-31.0); Mean Corpuscular Volume 91.3 fl (78.0-98.0); Mean Platelet Volume 7.7 fL (7.4-10.4); Platelet Count 346 10x3/uL (130-400); RBC Distribution Width 11.4 % (11.5-14.5); Red Blood Cell (RBC) Count 4.49 mill/uL (4.20-5.40); White Blood Cell (WBC) Count 16.8 10x3/uL (4.8-10.8)
[2022-05-30 21:44] LABS: BHCG - Serum Negative (NEGATIVE); Pregs Control Background? CLEAR/WHITE (CLR/WHITE); Pregs Control Bar Appear? YES (CONTROL BAR)
[2022-05-30 21:51] LABS: ALT (SGPT) 61 U/L (8-55); AST (SGOT) 45 U/L (5-34); Albumin 4.2 g/dL (3.5-5.0); Alkaline Phosphatase 88 U/L (40-110); Anion Gap 15 mmol/L (10-20); BUN (Urea Nitrogen) 8 mg/dL (7.0-18.7); Bilirubin, Total 0.6 mg/dL (0.2-1.2); Calc. Creatinine Clearance 0 mL/min (70-130); Calcium 8.8 mg/dL (7.8-10.44); Carbon Dioxide 21 mmol/L (22-29); Chloride 104 mmol/L (98-107); Estimated GFR 133; Globulin 3.1 g/dL (2.4-3.5); Glucose 102 mg/dL (70-105); Lipase 317 U/L (8-78); Potassium 4.1 mmol/L (3.5-5.1); Protein, Total 7.3 g/dL (6.0-8.3); Sodium 136 mmol/L (136-145)
[2022-05-30 23:07] LABS: Bilirubin Negative (Negative); Blood, Urine Negative (Negative); Clarity Clear (Clear); Glucose, Urine (Dipstick) Normal (Negative); Ketone, Urine Greater than 150 mg/dL (Negative); Leukocyte Negative Leu/uL (Negative); Nitrite Negative (Negative); Protein, Urine (Dipstick) 20 mg/dL (Neg-Trace); Specific Gravity, Urine 1.027 (1.002-1.036); Urobilinogen Normal mg/dL (Less than 2)
[2022-05-31] MEDS ORDERED: Senokot S 8.6-50 MG TAB PO PRN (00:26)
[2022-05-31] MEDS ORDERED: Bisacodyl 10 MG SUPP PR PRN (00:26)
[2022-05-31] MEDS ORDERED: Acetaminophen 325 MG TAB PO PRN (00:26)
[2022-05-31] MEDS: Ondansetron PF 4 MG/2 ML Vial IVP PRN ×3 (01:03→19:49)
[2022-05-31] MEDS: Morphine 2 MG/ML VIAL SLOW IVP PRN ×5 (01:03→19:49)
[2022-05-31] MEDS: Dextrose 5%-Lactated Ringers 1,000 ML IV SCH ×2 (01:11→13:07)
[2022-05-31 01:27] VITALS: BMI 37.1
[2022-05-31 06:44] LABS: #Eosinphils 0.1 thou/uL (0.0-0.7); #Lymphocytes 1.6 thou/uL (1.20-3.40); #Monocytes 0.7 thou/uL (0.11-0.59); #Neutrophils 9.7 thou/uL (1.40-6.50); %Basophils 0.1 % (0.0-1.0); %Eosinophils 0.7 % (0.0-10.0); %Lymphocytes 13.4 % (21.0-51.0); %Monocytes 5.4 % (0.0-10.0); %Neutrophils 80.4 % (42.0-75.0); Hemoglobin 12.5 g/dL (12.0-16.0); Mean Corpuscular HGB CONC 33.6 g/dL (32.0-36.0); Mean Corpuscular Volume 92.2 fl (78.0-98.0); Mean Platelet Volume 7.8 fL (7.4-10.4); Platelet Count 271 10x3/uL (130-400); RBC Distribution Width 11.3 % (11.5-14.5); Red Blood Cell (RBC) Count 4.04 mill/uL (4.20-5.40); White Blood Cell (WBC) Count 12.1 10x3/uL (4.8-10.8)
[2022-05-31 07:03] LABS: ALT (SGPT) 45 U/L (8-55); AST (SGOT) 27 U/L (5-34); Albumin 3.6 g/dL (3.5-5.0); Alkaline Phosphatase 74 U/L (40-110); Anion Gap 11 mmol/L (10-20); BUN (Urea Nitrogen) 5 mg/dL (7.0-18.7); Bilirubin, Total 0.4 mg/dL (0.2-1.2); Calc. Creatinine Clearance 160 mL/min (70-130); Calcium 8.1 mg/dL (7.8-10.44); Carbon Dioxide 21 mmol/L (22-29); Chloride 106 mmol/L (98-107); Estimated GFR 134; Globulin 2.7 g/dL (2.4-3.5); Glucose 143 mg/dL (70-105); Protein, Total 6.3 g/dL (6.0-8.3); Sodium 134 mmol/L (136-145)
[2022-05-31] MEDS: Lisinopril/Hydrochlorothiazide 10 mg/12.5 mg Tablet PO SCH ×2 (09:24→13:11)
[2022-05-31] MEDS: Famotidine 20 MG TAB PO SCH ×3 (09:24→19:49)
[2022-05-31] MEDS ORDERED: hydrALAZINE 20 MG/ML VIAL SLOW IVP PRN ×2 (09:44→16:34)
[2022-05-31] MEDS: Prochlorperazine Edisylate 10 MG in Sodium Chloride 0.9% 50 ML IVPB PRN (13:07)
[2022-06-01] MEDS: Morphine 2 MG/ML VIAL SLOW IVP PRN ×3 (00:04→12:16)
[2022-06-01] MEDS: Prochlorperazine Edisylate 10 MG in Sodium Chloride 0.9% 50 ML IVPB PRN (00:06)
[2022-06-01] MEDS: Ondansetron PF 4 MG/2 ML Vial IVP PRN (07:57)
[2022-06-01] MEDS: Famotidine 20 MG TAB PO SCH (07:57)
[2022-06-01 08:36] VITALS: TEMP 98.2
[2022-06-01 08:37] LABS: #Eosinphils 0.1 thou/uL (0.0-0.7); #Lymphocytes 2.7 thou/uL (1.20-3.40); #Monocytes 0.8 thou/uL (0.11-0.59); #Neutrophils 8.7 thou/uL (1.40-6.50); %Basophils 0.4 % (0.0-1.0); %Eosinophils 0.6 % (0.0-10.0); %Lymphocytes 21.8 % (21.0-51.0); %Monocytes 6.5 % (0.0-10.0); %Neutrophils 70.8 % (42.0-75.0); Hemoglobin 13.2 g/dL (12.0-16.0); Mean Corpuscular HGB CONC 32.8 g/dL (32.0-36.0); Mean Corpuscular Hemoglobin 30.2 pg (27.0-31.0); Mean Corpuscular Volume 91.9 fl (78.0-98.0); Mean Platelet Volume 7.6 fL (7.4-10.4); Platelet Count 322 10x3/uL (130-400); RBC Distribution Width 11.4 % (11.5-14.5); Red Blood Cell (RBC) Count 4.37 mill/uL (4.20-5.40); White Blood Cell (WBC) Count 12.2 10x3/uL (4.8-10.8)
[2022-06-01 08:56] LABS: ALT (SGPT) 36 U/L (8-55); AST (SGOT) 21 U/L (5-34); Albumin 3.9 g/dL (3.5-5.0); Alkaline Phosphatase 73 U/L (40-110); Anion Gap 15 mmol/L (10-20); BUN (Urea Nitrogen) Less than 4 mg/dL (7.0-18.7); Bilirubin, Total 0.6 mg/dL (0.2-1.2); Calc. Creatinine Clearance 153 mL/min (70-130); Calcium 8.9 mg/dL (7.8-10.44); Carbon Dioxide 24 mmol/L (22-29); Chloride 101 mmol/L (98-107); Estimated GFR 133; Globulin 3.2 g/dL (2.4-3.5); Glucose 103 mg/dL (70-105); Lipase 88 U/L (8-78); Potassium 3.7 mmol/L (3.5-5.1); Protein, Total 7.1 g/dL (6.0-8.3); Sodium 136 mmol/L (136-145)
[2022-06-01] MEDS ORDERED: Potassium Chloride 20 MEQ TAB PO SCH (10:30)
[2022-06-01 15:06] VITALS: BP 162/98
== END 2022-06-01 15:03 | disposition home or self-care (01) | DRG 440 ==
LOC: ERS 20:23 → T4-B 23:41
PROVIDERS: ADMIT Student in an Organized Health Care Education/Training Program; ATTEND Internal Medicine
DX: K85.20 Alcohol induced acute pancreatitis without necrosis or infection (principal); I10 Essential (primary) hypertension; Z20.822 Contact with and (suspected) exposure to COVID-19; G35 Multiple sclerosis; F41.9 Anxiety disorder, unspecified; F17.290 Nicotine dependence, other tobacco product, uncomplicated; K76.0 Fatty (change of) liver, not elsewhere classified; F10.10 Alcohol abuse, uncomplicated; Z79.899 Other long term (current) drug therapy; Z88.8 Allergy status to other drugs, medicaments and biological substances
CPT/HCPCS: 36415; 74177; 80053; 81003; 83690; 84703; 85025; 87077; 87086; 96374; 96375; J0780; J1885; J2272; J2405; Q9967; U0003; U0005

== ENCOUNTER 2023-09-02 20:07 | Emergency (ER) | payer OTHER ==
[2023-09-02 20:35] LABS: #Basophils 0.03 10x3/uL (0.0-0.2); %Basophils 0.2 % (0.0-1.0); %Eosinophils 0.9 % (0.0-10.0); %Lymphocytes 14.4 % (21.0-51.0); %Neutrophils 79.1 % (42.0-75.0); Hematocrit 40.7 % (36.0-47.0); Hemoglobin 13.4 g/dL (12.0-16.0); Mean Corpuscular HGB CONC 32.9 g/dL (32.0-36.0); Mean Corpuscular Volume 91.3 fL (78.0-98.0); Mean Platelet Volume 9.7 fL (7.4-10.4); Platelet Count 332 10x3/uL (130-400); RBC Distribution Width 12.3 % (11.5-14.5); Red Blood Cell (RBC) Count 4.46 mill/uL (4.20-5.40)
[2023-09-02 20:45] LABS: BHCG - Serum Negative (NEGATIVE); Pregs Control Background? CLEAR/WHITE (CLR/WHITE); Pregs Control Bar Appear? YES (CONTROL BAR)
[2023-09-02 20:49] LABS: ALT (SGPT) 40 U/L (8-55); AST (SGOT) 33 U/L (5-34); Albumin 4.1 g/dL (3.5-5.0); Alkaline Phosphatase 73 U/L (40-110); Anion Gap 14 mmol/L (10-20); BUN (Urea Nitrogen) 15 mg/dL (7.0-18.7); Bilirubin, Total 0.4 mg/dL (0.2-1.2); Calc. Creatinine Clearance 0 mL/min (70-130); Calcium 9.2 mg/dL (7.8-10.44); Carbon Dioxide 24 mmol/L (22-29); Chloride 101 mmol/L (98-107); Estimated GFR 128; Globulin 3.5 g/dL (2.4-3.5); Glucose 107 mg/dL (70-105); Lipase 47 U/L (8-78); Potassium 4.2 mmol/L (3.5-5.1); Protein, Total 7.6 g/dL (6.0-8.3); Sodium 135 mmol/L (136-145)
[2023-09-02] MEDS ORDERED: Pantoprazole 40 MG VIAL ONE (21:44)
[2023-09-02 22:17] LABS: Bacteria/HPF None Seen HPF (None Seen); Bilirubin Negative (Negative); Blood, Urine Negative (Negative); CAUTI Indications for Culture Pelvic or flank pain; Clarity Clear (Clear); Glucose, Urine (Dipstick) Normal (Negative); Ketone, Urine Greater than 150 mg/dL (Negative); Leukocyte Negative Leu/uL (Negative); Nitrite Negative (Negative); Protein, Urine (Dipstick) Negative (Neg-Trace); RBC/HPF 0-3 HPF (0-3); Specific Gravity, Urine 1.028 (1.002-1.036); Squamous Epithelial 0-3 HPF (0-3); Urobilinogen Normal mg/dL (Less than 2); WBC/HPF 0-3 HPF (0-3)
[2023-09-02 22:20] LABS: Urine Culture Reflex No No
== END 2023-09-02 23:23 | disposition home or self-care (01) ==
LOC: ERS 20:07
DX: K29.70 Gastritis, unspecified, without bleeding (principal); I10 Essential (primary) hypertension; F17.290 Nicotine dependence, other tobacco product, uncomplicated
CPT/HCPCS: 36415; 80053; 81001; 83690; 84703; 85025; 93005; 96374; C9113

== ENCOUNTER 2023-10-11 10:59 | Emergency (ER) | payer OTHER ==
[2023-10-11 12:56] LABS: Influenza A by NAA Not Detected (NotDetected); Influenza B by NAA Not Detected (NotDetected); SARS-CoV-2 NAA Rapid Test DETECTED (NotDetected)
[2023-10-11] MEDS ORDERED: Acetaminophen 500 MG TAB ONE (12:59)
== END 2023-10-11 13:10 | disposition home or self-care (01) ==
LOC: ERS 10:59
DX: U07.1 COVID-19 (principal); I10 Essential (primary) hypertension; F17.290 Nicotine dependence, other tobacco product, uncomplicated
CPT/HCPCS: 99283

== ENCOUNTER 2023-10-18 22:58 | Emergency (ER) | payer OTHER | END 2023-10-19 03:17 | disposition home or self-care (01) | LOC: ERS 22:58 | DX: U07.1 COVID-19 (principal); R06.02 Shortness of breath; F17.290 Nicotine dependence, other tobacco product, uncomplicated | CPT/HCPCS: 71045; 93005 ==

== ENCOUNTER 2024-03-09 17:51 | Emergency (ER) | payer OTHER | END 2024-03-09 19:27 | disposition home or self-care (01) | LOC: ERS 17:51 | DX: R20.2 Paresthesia of skin (principal); I10 Essential (primary) hypertension; F17.290 Nicotine dependence, other tobacco product, uncomplicated; Z79.899 Other long term (current) drug therapy | CPT/HCPCS: 36416; 93005 ==